=== PATIENT | male | born 1990 | race Hispanic/Latino ===

== ENCOUNTER 2024-05-28 05:55 | Day surgery (SDC) | payer OTHER ==
[2024-05-27 12:16] VITALS: BP 184/105; PULSE 89; RESP 18; TEMP 98.1
[2024-05-27 12:25] LABS: BASOPHILS # (AUTO) 0.06 K/uL (0.00-0.20); BASOPHILS % (AUTO) 0.6 % (0.0-5.0); EOSINOPHILS # (AUTO) 0.14 K/uL (0.00-0.70); EOSINOPHILS % (AUTO) 1.3 % (0.0-8.0); HEMATOCRIT 44.9 % (42-54); IMMATURE GRANULOCYTE ABSOLUTE 0.04 K/uL (0-1); LYMPHOCYTES # (AUTO) 1.7 K/uL (1.0-4.8); LYMPHOCYTES % (AUTO) 15.6 % (21.0-51.0); MEAN CORPUSCULAR HEMOGLOBIN 29.2 pg (27.0-33.0); MEAN CORPUSCULAR HGB CONC 34.1 g/dL (32.0-36.0); MEAN CORPUSCULAR VOLUME 85.7 fL (79-99); MONOCYTES # (AUTO) 0.7 K/uL (0.1-1.0); MONOCYTES % (AUTO) 6.6 % (3.0-13.0); NEUTROPHILS # (AUTO) 8.1 K/uL (1.8-7.7); NEUTROPHILS % (AUTO) 75.5 % (40.0-77.0); PLATELET COUNT (AUTO) 345 K/uL (130-400); RED BLOOD CELL COUNT(AUTO) 5.24 MIL/uL (4.50-6.20); RED CELL DISTRIBUTION WIDTH 12.5 % (11.0-15.5); WHITE BLOOD COUNT (AUTO) 10.7 K/uL (4.8-10.8)
[2024-05-27 12:39] LABS: INR 0.99 (0.85-1.15); PROTHROMBIN TIME 10.7 SEC (9.6-11.6)
[2024-05-27 12:40] LABS: PARTIAL THROMBOPLASTIN TIME 28.1 SEC (26.3-35.5)
[~2024-05-28] VITALS: Ht 177.8 cm; Wt 108.0 kg
[2024-05-28] VITALS (13 sets, daily range): BP systolic 119–153; BP diastolic 58–105; PULSE 85–98; RESP 12–18; TEMP 97.4–97.9
[~2024-05-28 05:55] MED LIST: LISI10TA24 PO; METH-811 PO; TRAM50TA4 PO
[2024-05-28] MEDS: ceFAZolin SODIUM 2 GM VIAL ONE (07:06)
[2024-05-28] MEDS ORDERED: HYDR-4060 PO (07:23)
[2024-05-28] MEDS ORDERED: LIDOCAINE PF 100MG/5ML (2%) SYRINGE 5ML ONE (07:51)
[2024-05-28] MEDS ORDERED: MIDAZOLAM HCL 1 MG/ML 2ML VIAL ONE (07:51)
[2024-05-28] MEDS ORDERED: proPOFol 10 MG/ML 20ML VIAL IV ONE (07:51)
[2024-05-28] MEDS ORDERED: rocuRONium bROMide 10MG/1ML 5ML VL ONE (07:52)
[2024-05-28] MEDS ORDERED: FENTanyl CITRate PF 50 MCG/1 ML 2ML VIAL ONE ×3 (07:52→10:48)
[2024-05-28] MEDS: ceFAZolin SODIUM 2 GM VIAL IVPB ONE (08:10)
[2024-05-28] MEDS ORDERED: acetaMINOPHEN 100 ML ONE (09:34)
[2024-05-28] MEDS ORDERED: ketOROlac 30MG VIAL (30MG/ML) ONE (10:21)
[2024-05-28] MEDS ORDERED: GLYCOPYRROLATE 0.2 MG/ML 5 ML VIAL ONE (10:24)
[2024-05-28] MEDS ORDERED: NEOSTIGMINE METHYLSULFATE 1MG/ML IV ONE (10:24)
[2024-05-28] MEDS: LACTATED RINGERS 1000ML 1,000 ML IV ONE (10:48)
--- NOTE | 2024-05-28 12:01 | HMCIMG ---
ANKLE COMP 3VWS LT REASON: ORIF LT ankle FX TECHNIQUE: 8 surgical spot views were obtained. These document operative reduction and internal fixation of bimalleolar ankle fracture. Ankle mortise appears preserved. Fluoroscopy time was 0.71 minutes. IMPRESSION: 1. Documentation of ORIF procedure left ankle.
--- NOTE | 2024-05-28 13:03 | NUR ---
CRUTCHES AND INSTRUCTIONS GIVEN TO PT AND , STATES PT ALREADY KNOWS HOW TO USE CRUCTHES BECAUSE HE HAS BEEN WALKING WITH THEM WHEN THEY WERE GIVEN TO HIM AFTER COMING OUT OF THE EMERGENCY ROOM.
--- NOTE | 2024-05-28 14:11 | OP ---
Operative Note: DATE OF PROCEDURE: 05/28/24 SURGEON: LAZARUS RAUSCH MD PROFESSOR OF [employer] PLANNING: Fabiana Jean ANESTHESIA: General with popliteal and adductor canal blocks ANESTHESIOLOGIST/HEAD BAGGAGE PORTER: Fab Bonilla CRNA PREOPERATIVE DIAGNOSIS: Left ankle trimalleolar fracture POSTOPERATIVE DIAGNOSIS: Left ankle trimalleolar fracture PROCEDURE: Open reduction internal fixation left ankle medial and lateral malleolus ESTIMATED BLOOD LOSS: 10 cc INDICATIONS: 33-year-old male with status post left ankle injury when roller- skating. Patient initially seen at an outside ER where he was reduced and placed into a splint. The patient followed up in my clinic with x-rays revealing a trimalleolar fracture with incomplete reduction. After discussion of the risks, benefits, and alternatives, the patient voluntarily agreed to undergo the aforementioned procedure. DESCRIPTION OF PROCEDURE: Patient was properly identified in the preoperative holding area. Surgical site marking was verified and surgery consent reviewed. The patient was then taken to the operating room and placed in supine position on the OR table. After induction of general anesthesia, preoperative antibiotics were given, all bony prominences were well-padded, and a well padded tourniquet was applied but not inflated at this time. The left lower extremity was then prepped and draped in usual sterile fashion. Surgical timeout was done verifying correct surgery, side, site, and location to be performed. We then began the procedure by exsanguinating the limb using Esmarch and inflating the tourniquet to 350 mmHg. At this point we focused our attention on the medial malleolus where we made an approximately 5 cm long incision avoiding the anterior medial abrasion. We then dissected carefully through the subcutaneous tissue. We then identified our fracture site and cleaned surrounding periosteum and other soft tissue as well as hematoma from within the fracture site. We then made a drill hole in the proximal fracture fragment. Reduction was obtained using a dental pick and held using a [id number] reduction clamp this was then verified to be reduced under AP and mortise fluoroscopic views. We are then happy with the level of reduction we were able to achieve medially at this time so we elected to address the lateral side 1st. Our reduction clamps were removed from the medial side. We then used a 15 blade to make approximately 15 cm long incision directly over the lateral malleolus centered over the fracture site. We came sharply through the skin dissected carefully through the subcutaneous tissue and identified the subcutaneous border of the fibula. We cut down sharply onto the fibula using a 15 blade. We then used our periosteal elevator to elevate soft tissue off of the bone both in the proximal and distal direction as well as anterior and posterior direction. We identified the fracture site. The fracture site were then distracted and interposed soft tissue and hematoma was debrided using a curette. We noted there to be comminution of the fracture site with incomplete fracture the more medial butterfly fragment distally. We elected to go ahead and bridge plate this area of comminution. We selected a 10 hole plate and positioned this is appropriate and under fluoroscopy. The plate was contoured as needed. We then elected to place a single cortical screw in the proximal fracture fragment holding the plate reduced to the bone here. We then achieved our fracture reduction using a lion-jaw clamps to manipulate the proximal frac ture fragment in the more medial aspect of the butterfly until reduction was achieved. We held our reduction with a temporary fixation pin through the plate into the distal fragment. This was then visualized under AP and mortise fluoroscopic views and found to be appropriately reduced with fibula out to length. We then verified under fluoroscopic views of the the hardware was in appropriate position and fracture reduction maintained. We then began to drill and fill to screw holes above and below the fracture site with 3.5 locking screws. This was done in standard fashion. Once we had completed the fixation of the lateral malleolus, we redirected our attention back to the medial side. We again attempted to achieve a reduction of the medial fracture fragment where we had to remove interposed soft tissue along the posterior aspect with the retromalleolar tendons. While holding these structures out of the fracture site we then manipulated the medial fragment with a dental pick and a [place] until we are able to achieve the appropriate rotation. Our reduction was then held using a [id number] clamp. We then checked the reduction under fluoroscopy and found this to be adequate. We then placed our 2 guidepins for cancellus screws and verified these to be appropriate position under AP lateral and mortise fluoroscopic views. We then drilled and filled the screws over the wires in standard fashion. Once we had this hardware in place we then removed the guidewires and the reduction clamp. We then obtained our final AP mortise and lateral fluoroscopic views. These were saved to the PACS system and they were interpreted by me. We then thoroughly irrigated out the wound with normal saline and began to repair the subcutaneous tissue using a 2-0 Vicryl. A 3-0 nylon suture was used interrupted horizontal mattress fashion to close the skin. Sterile dressing with a posterior splint with a U was then applied. Tourniquet was then deflated. Patient was awakened from anesthesia and taken to the recovery room in stable condition. LAZARUS RAUSCH MD May 28, 2024 14:11
== END 2024-05-28 12:35 | disposition home or self-care (01) ==
LOC: DAH 05:55
PROVIDERS: ATTEND Student in an Organized Health Care Education/Training Program
DX: S82.852A Displaced trimalleolar fracture of left lower leg, initial encounter for closed fracture (principal); M25.572 Pain in left ankle and joints of left foot; I10 Essential (primary) hypertension; Z79.01 Long term (current) use of anticoagulants; Z79.899 Other long term (current) drug therapy; X58.XXXA Exposure to other specified factors, initial encounter; Y93.51 Activity, roller skating (inline) and skateboarding; Y92.89 Other specified places as the place of occurrence of the external cause; Y99.8 Other external cause status
CPT/HCPCS: 80048; 85025; 85610; 85730; 36415; 27814; 73610; 64447; 64445; C1713 ×9; C1725; A4663; J7120 ×2; A4649 ×3; J3010 ×3; J3490 ×2; J2003; J2250; J2704; J1885; J2710; J0690 ×2; A6223; A4215; A4223; A4222; A4221; A6450